=== PATIENT | male | born 1965 | race Caucasian/White ===

== ENCOUNTER 2023-08-23 12:48 | Outpatient (AMB) | payer MEDICARE, SELFPAY ==
--- NOTE | 2023-08-23 13:03 | A.SPINEOV_ITS ---
Intake Intake Visit Reasons: sacrolillitis Intake Note: Mr. Bowers is here today c/o Low back pain. Rand Tacker Required: No Assessment & Plan Assessment & Plan (1) Back pain: Code(s): M54.9 - Dorsalgia, unspecified Plan Dear Dr. Lopez Thank you for referring Mr. Bowers to our office today. He is a 58-year-old g entleman who underwent an I Fuse procedure in [address] Alarcon after series of successful SI joint injections. After he underwent the procedure, he states that after a brief recovery, he started to have a back slight of his symptoms. Specifically things started to get worse when he would be standing walking or doing any kind of physical labor. Things ultimately progressed and it sounds like he was seen at a hospital in [place] for follow-up evaluation to see if there was a problem with the surgical site. From what he tells me, it sounds like there was possibly some evidence of pseudoarthrosis but in the end the surgeon decided that he could not proceed with any intervention. Unfortunately this gentleman continues to have daily chronic pain in his back which is debilitating. It is on both sides there is SI joints and in the midline. It is worse on the right. He does occasionally get pain down his leg with the back pain seems to be the primary pain generator. He had an injection in your office last year I believe in he did get 60% relief from that and he also has been getting relief from the stabilization belt. He was sent today to see if there is any way we could consider doing surgery with the medial to lateral anterior posterior approach of the Transfasten system. PMH: He tells me he is otherwise healthy, he is currently disabled from working because of his back issues. As mentioned he had a right SI joint fusion done approximately 12 or 13 years ago. He denies any history of heart attacks, strokes, liver disorders, kidney problems, bleeding disorders, etc. Social hx: He smokes about 3/4 of a pack a day, occasionally uses marijuana, very rarely drinks. Medications: Gabapentin, ibuprofen, oxycodone and Soma Allergies: None Physical exam: Positive tenderness over the SI joints with positive compression testing eliciting pain on both sides. Gait is slightly antalgic. Imaging review: Lumbar MRI done in 2022 at [facility] showing multilevel degenerative disc disease. I did x-rays here in the office just to get a better look at the hardware in his SI joint. It looks as though the lower titanium bolt has some lucency around it. The patient tells me he does have a CT scan done at [facility] but does not have the disc with him today. I can not access this online. Impression: 58-year-old gentleman who underwent right Ifuse procedure about 10 or 12 years ago done at [facility], initially did okay, but afterwards started to continue to have progressive pain back into his SI joint. He now also has pain on the left SI joint and in his midline spine. He had a follow-up evaluation a surgeon in [place], and was told although there may be some evidence of lucency on the CT scan, there was nothing he could do because of the previous access of the joint laterally. I am interpreting this through what the patient tells me. He was being sent over today to evaluate whether or not we could use the Transfasten system which uses a medial to lateral posterior approach. I obtained basic x-rays here in the office today, it does look like there maybe a slight lucency of the lower bolt in the SI joint construct. I am going to have my office staff obtain the CT scan so we can get a little better look to see how much room we have to drill down in their in place the bone plug. Once I have the CT scan in hand I will review with Dr. Monahan and get back to the patient. Thank you for allowing us to care for your patient. The total time spent with this visit with this patient was 45 minutes reviewing history, physical exam, lumbar MRI and x-ray imaging review, and implementation of treatment plan or further diagnostic testing Min Monahan MD,PhD [facility] Orders: Orders XR pelvis min 3V Today M54.9 - Dorsalgia, unspecified XR lumbar spine 4V min Today M54.9 - Dorsalgia, unspecified Coding Level of Care Code New Pt Level 4 (77332) Diagnoses Back pain M54.9
== END 2023-08-23 14:23 | disposition home or self-care (01) ==
PROVIDERS: PCP Physician Assistant Medical; Referring Provider Physical Medicine & Rehabilitation; Visit Provider Physician Assistant
DX: M54.9 Dorsalgia, unspecified (principal)
CPT/HCPCS: 99204

== ENCOUNTER 2023-08-23 12:48 | Outpatient (REF) | payer MEDICARE, SELFPAY ==
--- NOTE | ~2023-08-23 | XR_ITS ---
EXAMINATION: XR LUMBOSACRAL SPINE WITH FLEXION AND EXTENSION VIEWS CLINICAL INFORMATION: Dorsalgia, unspecified COMPARISON: Same-day AP pelvis TECHNIQUE: AP, lateral and lateral flexion and extension views of the lumbar spine. FINDINGS: There is mild curve of the upper lumbar spine, convex left. There are 5 nonrib-bearing lumbar-type vertebral bodies. The height of vertebral bodies is well-maintained. There is mild disc space narrowing at L3-L4 and L4-L5. There is mild retrolisthesis of L2 with respect to L3, L3 respect to L4 and L5 with respect to S1. The patient demonstrates limited flexion and extension. There is no change in alignment with flexion and extension compared to the neutral view 3 metallic densities project over the right SI joint. XR/XR lumbar spine 4V min IMPRESSION: 1. Mild curve of the upper lumbar spine, convex left. 2. Multilevel degenerative disc disease. 3. Multilevel retrolisthesis unchanged with flexion and extension.
--- NOTE | ~2023-08-23 | XR_ITS ---
EXAMINATION: XR PELVIS CLINICAL INFORMATION: Dorsalgia, unspecified COMPARISON: None available. TECHNIQUE: AP view of the pelvis. FINDINGS: 3 metallic densities project over the right sacroiliac joint. No fracture. Hip joint spaces are maintained. Alignment is anatomic. The left sacroiliac joint and pubic symphysis are normal. A few small calcifications in the pelvis likely represent phleboliths. XR/XR pelvis min 3V IMPRESSION: 3 metallic densities project over the right sacroiliac joint.
== END 2023-08-23 12:49 | disposition home or self-care (01) ==
LOC: HO.HOSX 12:48
PROVIDERS: Visit Provider Physician Assistant
DX: M54.9 Dorsalgia, unspecified (principal)
CPT/HCPCS: 72110; 72190; 99202

== ENCOUNTER 2024-07-06 10:43 | Outpatient (AMB) | payer MEDICARE, SELFPAY ==
--- NOTE | 2024-07-06 11:16 | MHC.OFFVIS ---
Vital Signs 07/06/24 11:23 Height 5 ft 11 in Weight 167 lb BMI 23.3 BP 125/70 Blood Pressure Location Lt brachial Position Sitting Pulse 63 Pulse Source Pulse Oximeter Pulse Oximetry (%) 99 Oxygen Delivery Method Room Air Intake Visit Reasons: Sacroiliitis Magnetic Prospecting Supervisor Required: No Allergies No Known Allergies Allergy (Verified 07/06/24 11:17) Medication List - Last Reconciled 07/06/24 by Samantha Garcia, APPLICATION DEVELOPMENT DIRECTOR carisoprodol mg PO gabapentin mg PO omeprazole mg PO DAILY oxycodone mg PO Q4H sertraline mg PO DAILY HPI HPI Sacroiliitis: Details: History of Present Illness The patient is a 59-year-old male presenting with chronic back pain. Following an right iFuse procedure in 2010, pain initially improved but worsened with physical activity. The pain is located in the axial low back and bilaterally in the sacroiliac joints, more severely on the right, and occasionally radiates down the legs. Treatment history includes sacroiliac joint injections and current use of oxycodone and Soma. A lumbar spine MRI in 2022 showed degenerative disc and vertebral end plate modic changes. The patient's daily activities are impaired with pain peaking at 10/10. Pain Description - Onset and Timing: Chronic, worsened after iFuse procedure in 2010 - Quality and Character: Aching and stabbing sensation - Primary Location: Sacroiliac joints bilaterally - Areas of Radiation: Occasional leg pain, reaching the foot, predominantly on the right - Exacerbating Factors: Physical activity, walking, standing - Relieving Factors: Sitting, stabilization belt, oxycodone, Soma - Impact: Severe pain (10/10) impairs sleep and daily activities, except moderate sitting Physical Exam - Limited ROM. Forward flexion reproduces pain; axial rotation is also very limited Results - Tests: Lumbar spine MRI in 2022 indicating Modic 1 degenerative endplate changes are present at L3-4, and less prominently at T11-12, L2-3, L4-5, and L5-S1. Multilevel Schmorl'snodes are present. No suspicious marrow lesions are seen. Intervertebral disc spaces are diffusely desiccated, with moderate to severe loss of disc space between L1 and L5 and mild loss of disc height at L5-S1. Pain Management - Affect: Pain significantly impairs psychological well-being and sleep - Analgesia: Uses oxycodone (5x20mg daily) and Soma ([id number] daily), pain rated 10/10, goal to reduce pain levels - Adverse Effects: Loss of pain medication - Activities of Daily Living: Pain restricts daily life functions and sleeping patterns, seeks to reduce medication usage - Aberrant Drug-Related Behaviors: Reports lost pain medication Physical Exam Vital Signs: Last Vital Signs Pulse 63 07/06/24 11:23 BP 125/70 07/06/24 11:23 Pulse Ox 99 07/06/24 11:23 Oxygen Delivery Method Room Air 07/06/24 11:23 BMI result Body Mass Index 23.3 Assessment & Plan Assessment & Plan (1) Vertebrogenic low back pain: Code(s): M54.51 - Vertebrogenic low back pain Category: Medical (2) S/P fusion of sacroiliac joint: Comment: right Code(s): Z98.1 - Arthrodesis status Category: Medical (3) Sacroiliac joint dysfunction of both sides: Code(s): M53.3 - Sacrococcygeal disorders, not elsewhere classified Category: Medical Plan Plan - Discussed BVN ablation for vertebrogenic LBP that has not responded to SIJ fusion, SIJ injections, opioid medications and bracing. Significantly affecting ADLs and QoL. Will target L3, L4, L5 and S1 levels. Patient was informed and verbally consented to the use of an ambient scribe for clinic note documentation during this visit. Discussion Notes I discussed with the patient the possibility of vertebrogenic pain contributing to his chronic back pain. The initial plan includes intracept procedure on the lumbar area, which may decrease pain levels significantly. It is anticipated that sacroiliitis pain may need separate management following the initial intervention. I explained the procedure's details using educational materials, and the expected outcome of reducing pain levels, and proposed to monitor the response before proceeding with additional sacroiliac joint treatments. We discussed that the intracept procedure will last approximately four hours, with the patient likely to be discharged post-procedure. I provided materials for further study of the procedure and agreed on follow-up dependent upon the outcome of initial intervention. Patient Instructions - Use pain management resources provided - Prepare for intervention targeting lower back - Arrange transportation for the procedure; hospital stay expected to be around four hours - Watch procedure video material provided - Follow up with respective medical team post-procedure for evaluation - Report sudden changes in symptoms or conditions prior to mediation plan completion Coding Level of Care Code New Pt Level 4 (44303) Diagnoses Vertebrogenic low back pain M54.51 S/P fusion of sacroiliac joint Z98.1 Sacroiliac joint dysfunction of both sides M53.3
[2024-07-06 11:23] VITALS: BP 125/70; PULSE 63; O2SAT 99; BMI 23.3
== END 2024-07-06 12:05 | disposition home or self-care (01) ==
PROVIDERS: PCP Physician Assistant Medical; Referring Provider Physical Medicine & Rehabilitation; Visit Provider Internal Medicine
DX: M54.51 Vertebrogenic low back pain (principal); Z98.1 Arthrodesis status; M53.3 Sacrococcygeal disorders, not elsewhere classified
CPT/HCPCS: 99204

== ENCOUNTER → 2024-07-06 10:43 | Outpatient (BNVA) | payer OTHER, SELFPAY | PROVIDERS: PCP Physician Assistant Medical; Referring Provider Physical Medicine & Rehabilitation; Visit Provider Internal Medicine | DX: M53.3 Sacrococcygeal disorders, not elsewhere classified (principal); M54.51 Vertebrogenic low back pain; Z79.891 Long term (current) use of opiate analgesic; Z98.1 Arthrodesis status | CPT/HCPCS: 99202 ==

== ENCOUNTER 2024-09-16 11:08 | Day surgery (SDC) | payer OTHER, SELFPAY ==
[2024-09-14 16:08] VITALS: BMI 23.3
[2024-09-16] VITALS (13 sets, daily range): BP systolic 106–161; BP diastolic 66–91; PULSE 52–68; RESP 16–20; TEMP 36.1–36.7; O2SAT 96–100; BMI 23.4
--- NOTE | ~2024-09-16 | FL_ITS ---
EXAMINATION: FL GUIDANCE ONLY HISTORY: intracept COMPARISON: Correlation is made with plain films of the lumbar spine dated 08/23/2023. TECHNIQUE: Fluoroscopy time: 2 minutes, 22 seconds. Cumulative Dose: 80.25 mGy. DAP: 0.139 mGym2 Images: 11. FINDINGS: Images demonstrate probes within the L3, L4, L5, and S1 vertebral bodies. FL/FL guidance in OR IMPRESSION: Fluoroscopy during procedure. Please see procedure report for additional information. Electronically signed by: Curtis Tran MD 09/17/2024 07:19 AM EDT
[2024-09-16 13:27] LABS: MRSA Nasal PCR NEGATIVE (Negative); SA Nasal PCR POSITIVE (Negative)
--- NOTE | 2024-09-16 13:37 | HO.ANESPROP2 ---
[facility] Active Problems Active Problems: All Active Problems Sacroiliac joint dysfunction of both sides (Acute) S/P fusion of sacroiliac joint (Acute) Vertebrogenic low back pain (Acute) Back pain (Acute) Past Medical History Functional capacity: independent ambulation Family History Family history of problems with anesthesia: No Surgical History History of Problems with Anesthesia: No Social History Social History Patient Tobacco Use Status: Current everyday Tobacco user Tobacco use type: Cigarette Cigarettes Per Day: 15 Use of substances other than those prescribed or required for medical reasons: Yes Substance Use Type Other:: CBD gummies occasionally, last used 09/15/24 Advance Directives: No Advance Directives Information Provided: Yes Meds Allergies Allergy/AdvReac Type Severity Reaction Status Date / Time No Known Allergies Allergy Verified 09/16/24 12:08 Home Medications ?Medication ?Instructions ?Recorded ?Confirmed ?Last Taken ?Type carisoprodol 350 mg tablet 350 mg PO QID 07/06/24 09/16/24 Unknown History gabapentin 300 mg capsule 1,500 mg PO BEDTIME 07/06/24 09/16/24 Unknown History omeprazole 40 mg capsule,delayed 40 mg PO DAILY 07/06/24 09/16/24 Unknown History release oxycodone 20 mg tablet 20 mg PO Q3H 07/06/24 09/16/24 09/16/24 11:55 History sertraline 50 mg tablet 50 mg PO DAILY 07/06/24 09/16/24 Unknown History Exam Height,Weight and Vital Signs: Height 5 ft 11 in Weight 76 kg Last Vital Signs Temp 98.1 F 09/16/24 12:12 Pulse 52 09/16/24 12:12 Resp 16 09/16/24 12:12 BP 106/66 09/16/24 12:12 Pulse Ox 96 09/16/24 12:12 O2 Del Method Room Air 09/16/24 12:12 Pertinent Lab Results Pertinent Lab Results: Laboratory Tests 09/16/24 12:05 Nasal Screen MRSA (PCR) NEGATIVE Nasal S. aureus Screen POSITIVE A Nasal MRSA/S.aureus Interp SEE NOTE Airway Mallampati Class: II TM Dist: >3cm Neck ROM: Full Heart: RRR Lungs: CTA Assessment and Plan Assessment Anesthesia Assessment: Anesthesia Plan Discussed, Smoking Cess. Discussed and Chart Reviewed Final Anesthetic Review Family History of Problems with Anesthesia: No History of Problems with Anesthesia: No NPO: Yes ASA Class: III Final Preanesthetic Review: Meds/Allgs Chart Reviewed, Consent Obtained/Reviewed and Anes Risks/Benef Reviewed Patient Risk: Intermediate Procedure Risk: Intermediate Anesthetic Plan Anesthetic Plan: GA Disposition: Standard PACU
--- NOTE | 2024-09-16 14:10 | MHC.SHP ---
Pre-Procedural Eval Section A - 24 Hr Update-Section A only Date of Service: 09/16/24 The patient is an INPATIENT: No Changes since office visit: Yes Patient answered all questions The patient has been examined within 24 hours of the surgical procedure. The History & Physical has been completed within 30 days and I have reviewed it.: No Section B - Complete if H&P > 30 days Chief Complaint: Vertebrogenic low back pain Relevant Family History (Specify if Yes): No Relevant Social History: None Present Medications: see Short Stay Collaborative assessment Medical History: No relevant PMH History of Previous Operations: No relevant previous surgery Allergies: Allergies Allergy/AdvReac Type Severity Reaction Status Date / Time No Known Allergies Allergy Verified 09/16/24 12:08 Review of Systems Sugical H&P ROS: Negative: Constitution, Cardiovascular and Respiratory Exam Surgical H&P Exam: Normal: HEENT, Normal: Heart and Normal: Lungs Plan Diagnosis/Plan: Unchanged I have reviewed the history and physical and performed a pertinent physical examination on my patient. No changes have occurred unless specified. Time Spent With Patient Time: Total time managing care of this patient today ____ minutes.
--- NOTE | 2024-09-16 16:53 | PM.OP ---
Brief Operative Note Date of Service: 09/16/24 Pre-op diagnosis: Vertebrogenic low back pain Post-op diagnosis: same Procedure: L3, L4, L5, S1 Basivertebral nerve ablation (Intracept) procedure Implants: None Surgeon: Archie Castillo MD Anesthesia: GETA Was an Polysomnographic Technologist used for this Procedure?: No Estimated blood loss (mL): 40 Pathology: none sent Condition: stable Disposition: PACU
--- NOTE | 2024-09-16 16:55 | P.OP_ITS ---
Operative Note Operative Note Date of Service: 09/16/24 Narrative: Preoperative diagnosis: Vertebrogenic low back pain Postoperative diagnosis: Same Procedure: Basivertebral nerve (BVN) ablation ? Intracept Procedure L3, L4, L5, S1 Procedure Time Out: Patient ID confirmed, correct procedure to be performed, correct site and/or side for procedure as per marked location and correct medication(s), including antibiotic to be used for the procedure. Description of Procedure: After receiving anesthesia in the supine position, the patient was placed prone on the operating room table and all pressure points w ere appropriately padded. The back was sterilely prepped and draped. The C-arm was sterilely draped and moved into position to visualize the S1 vertebral body in the AP and lateral plane. The C-arm was rotated to a Lemus view to square off the superior endplate at S1. The C-arm was then rotated to the right approximately 15-20 degrees for an approach to the right S1 pedicle. The skin entry point was identified and infiltrated with 1% lidocaine using a 25-gauge 1- 1/2 inch needle. A 22-gauge 5-inch spinal needle was used to anesthetize the track to the pedicle and periosteum and confirm the introducer cannula trajectory. A skin incision was made with 15 scalpel blade. The introducer cannula with bevel tip was then introduced through the skin, subcutaneous tissue and paraspinal muscle until bony contact was made. The position was checked in the AP and lateral plane. Using a mallet, the trocar was then advanced thru the pedicle to the posterior aspect of the vertebral body using a combination of AP and lateral views to ensure appropriate traversing of the pedicle and no breaching of the pedicle medially. Once the trocar was in the posterior aspect of the S1 vertebral body, the trocar was removed from the cannula and the curved cannula assembly with the nitinol J-stylet was inserted. The spin wheel was rotated counterclockwise permitting excursion of the J-stylet. The curved can nula assembly was then advanced using a mallet in 1-2 mm increments. The J- stylet was observed to traverse the vertebral body in the AP and lateral views. The J-stylet was removed and replaced with the straight stylet to reach the BVN target. Target was reached when the tip of the stylet was 50% anterior of the posterior wall of the S1 in the lateral view (midway between the superior and inferior endplates) and it crossed the midline of the S1 spinous process in the AP view. The stylet was then removed. The bipolar radiofrequency (RF) probe was connected to the generator and then inserted into the introducer cannula in its ablation position. The spin wheel was rotated clockwise to retract the PEEK sleeve to expose the proximal electrode on the radiofrequency probe. The BVN was then ablated using [employer]?s targeted RFG algorithm. While the ablation was occurring at S1, the C-arm was moved to visualize the target at the superolateral aspect of the L5 vertebral body. The C-arm was rota bernadine to square off the superior endplate at L5 and rotated left to obtain an oblique view. The superolateral left L5 pedicle was identified for access. The same process was utilized to place the tip of the cannular 50% anterior of the posterior wall of the L5 in the lateral view (midway between the superior and inferior endplates) and it crossed the midline of the L5 spinous process in the AP view. The stylet was then removed. The bipolar radiofrequency (RF) probe was removed from the previous vertebral body, the tip cleaned and was inserted into the introducer cannula in its ablation position. The spin wheel was rotated clockwise to retract the PEEK sleeve to expose the proximal electrode on the radiofrequency probe. The BVN was then ablated using [employer]?s targeted RFG algorithm. While the ablation was occurring at L5, the C-arm was moved to visualize the target at the superolateral aspect of the L4 vertebral body using the approach similar to the L5 vertebral body. The C-arm was rotated to square off the superior endplate at L4 and rotated approximately to the right to obtain an oblique view. The superolateral right L4 pedicle was identified, and the skin entry point identified. Same steps were followed as for L5. Target was reached when the tip of the stylet was 50% anterior of the posterior wall of the L4 in the lateral view (midway between the superior and inferior endplates) and it crossed the midline of the L4 spinous process in the AP view. The stylet was then removed. The bipolar radiofrequency (RF) probe was removed from the previous vertebral body, the tip cleaned and was inserted into the introducer cannula in its ablation position. The spin wheel was rotated clockwise to retract the PEEK sleeve to expose the proximal electrode on the radiofrequency probe. The BVN was then ablated using [employer]?s targeted RFG algorithm. While the ablation was occurring at L4, the C-arm was moved to visualize the target at the superolateral aspect of the L3 vertebral body. The C-arm was rotated to square off the superior endplate at L3 and rotated left to obtain an oblique view. The superolateral left L3 pedicle was identified for access. The same process was utilized to place the tip of the cannular 50% anterior of the posterior wall of the L3 in the lateral view (midway between the superior and inferior endplates) and it crossed the midline of the L5 spinous process in the AP view. The stylet was then removed. The bipolar radiofrequency (RF) probe was removed from the previous vertebral body, the tip cleaned and was inserted into the introducer cannula in its ablation position. The spin wheel was rotated clockwise to retract the PEEK sleeve to expose the proximal electrode on the radiofrequency probe. The BVN was then ablated using [employer]?s targeted RFG algorithm. With all ablations completed, the instruments were removed from the vertebral bodies. The surgical wounds were closed with 2-0 silk sutures and a sterile dressing was applied. The patient was returned to the supine position and the anesthesia reversed. The patient tolerated the procedure well and was brought to the recovery room. The patient was provided post-op and follow up instructions. Complications: None Estimate Blood Loss: 40 mL
[2024-09-16] MEDS: Ketorolac Tromethamine 30 MG/ML VIAL IVPUSH (16:56)
[2024-09-16] MEDS: fentaNYL citrate/PF 100 MCG/2 ML VIAL 50 MCG IVPUSH ×3 (16:57→17:15)
[2024-09-16] MEDS: oxyCODONE HCl Immed Release 5 MG TABLET PO (17:28)
== END 2024-09-16 17:43 | disposition home or self-care (01) ==
PROVIDERS: Registered Nurse Emergency; Visit Provider Internal Medicine
PROC: (CPT 64628; principal; 2024-09-16 13:20)
DX: M54.51 Vertebrogenic low back pain (principal); G89.29 Other chronic pain; M46.1 Sacroiliitis, not elsewhere classified; M53.3 Sacrococcygeal disorders, not elsewhere classified; Z98.1 Arthrodesis status; Z79.891 Long term (current) use of opiate analgesic; Z79.899 Other long term (current) drug therapy; F17.210 Nicotine dependence, cigarettes, uncomplicated
CPT/HCPCS: 64628; 64629 ×2; 87640; 87641; C1889; J0690; J1100; J1171; J1596; J1885; J2003; J2250; J2405; J2704; J2795; J3010

== ENCOUNTER → 2024-09-16 11:08 | Outpatient (BNV) | payer OTHER, SELFPAY | PROVIDERS: Visit Provider Internal Medicine | DX: M54.51 Vertebrogenic low back pain (principal) | CPT/HCPCS: 64628; 64629 ==

== ENCOUNTER 2024-09-25 10:47 | Outpatient (AMB) | payer OTHER, SELFPAY ==
--- NOTE | 2024-09-25 10:50 | A.OFFVIS_ITS ---
Vital Signs 09/25/24 10:51 Height 5 ft 10 in Weight 165 lb BMI 23.7 BP 128/73 Blood Pressure Location Lt brachial Position Sitting Pulse 62 Pulse Source Pulse Oximeter Pulse Oximetry (%) 97 Oxygen Delivery Method Room Air Intake Visit Reasons: S/p L3, L4, L5 and S1 BVN 09/16/24 Track Superintendent Required: No Allergies No Known Allergies Allergy (Verified 09/25/24 10:54) Medication List - Last Reconciled 09/25/24 by Samantha Garcia, COMPENSATION SPECIALIST carisoprodol 350 mg PO QID gabapentin 1,500 mg PO BEDTIME omeprazole 40 mg PO DAILY oxycodone 20 mg PO Q3H sertraline 50 mg PO DAILY HPI HPI S/p L3, L4, L5 and S1 BVN 09/16/24: Details: History of Present Illness The patient is a 59-year-old male presenting for a follow-up visit focusing on his pain management post-basivertebral nerve ablation procedure. Central back pain appears controlled. The SIJ pain continues unabated. His pain history is significant for chronic sacroiliac joint pain, exceeding a decade, and exacerbated by particular activities such as standing or walking on concrete surfaces. He has undergone previous right sacroiliac joint fusion, which did not yield the desired relief. Recently, the patient engaged in activities that increased his pain temporarily, and he reports anticipatory relief following his recent procedure. The persistent pain, described as burning and existing on both sides but primarily the right, is interfering with his usual daily activities. There has been previous discussion of surgical interventions, including the placement of new rods, but the patient's preference is towards less invasive solutions potentially offered by a peripheral nerve stimulator. Pain Description - Onset: Persistent for approximately 10 years - Quality: Chronic, burning sensation - Location: Right sacroiliac joint, occasionally affects the left side - Impact: Significant interference with standing, walking, and daily activities - Aggravating Factors: Standing or walking on concrete surfaces - Relieving Factors: Walking on softer surfaces like grass or wood Physical Exam - Musculoskeletal- Right sacroiliac joint noted to be sore upon palpation - No tenderness overlying incision sites Pain Management - Affect: Reports significant impact on quality of life and psychological wellbeing due to persistent, severe pain - Analgesia: Currently taking opioid medication with plans to reduce, desires alternative management options - Adverse Effects: None reported, but expressed desire to reduce opioid dependence - Activities of Daily Living: Pain restricts activity levels, prohibiting extended standing/walking - Aberrant Drug Related Behaviors: None reported, compliance with current medication regimen [facility] Social History Comment: medicated; tolerable at discharge Patient Tobacco Use Status: Current everyday Tobacco user Tobacco use type: Cigarette Cigarettes Per Day: 15 Physical Exam Vital Signs: Last Vital Signs Pulse 62 09/25/24 10:51 BP 128/73 09/25/24 10:51 Pulse Ox 97 09/25/24 10:51 Oxygen Delivery Method Room Air 09/25/24 10:51 BMI result Body Mass Index 23.7 Assessment & Plan Assessment & Plan (1) Sacroiliac joint dysfunction of both sides: Code(s): M53.3 - Sacrococcygeal disorders, not elsewhere classified Category: Medical (2) Vertebrogenic low back pain: Code(s): M54.51 - Vertebrogenic low back pain Category: Medical (3) Cluneal neuropathy: Code(s): G58.8 - Other specified mononeuropathies Category: Medical Plan Plan - Pursue peripheral nerve stimulator trial for 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 Patient was informed and verbally consented to the use of an ambient scribe for clinic note documentation during this visit. Discussion Notes During this visit, I discussed with the patient the chronic pain related to his failed sacroiliac joint fusion and the possible intervention of a peripheral nerve stimulator to manage this pain. I detailed the procedural aspects of the stimulator, which involves a trial to assess efficacy before permanent implantation. I explained the need for psychology clearance as part of the clearance requirement. Information on benefits, including decreased reliance on pain medications, was provided. We also addressed medication management, with a temporary prescription issued to bridge the gap until the next refill, and ensured that the prescription is coordinated with the correct pharmacy. Patient Instructions - Prepare for the upcoming psychology evaluation as part of the peripheral nerve stimulator process. - Continue current medications as prescribed until the refill date. - Monitor pain levels and report any changes during follow-up visits. - Avoid activities known to exacerbate pain, and explore moderate movement where comfortable. - Follow-up with pharmacy details to ensure medication receipt. Medications: New oxycodone 20 mg PO Q3H 20 tabs 0RF Coding Level of Care Code Est Pt Level 4 (48035) Diagnoses Sacroiliac joint dysfunction of both sides M53.3 Vertebrogenic low back pain M54.51 Cluneal neuropathy G58.8
[2024-09-25 10:51] VITALS: BP 128/73; PULSE 62; O2SAT 97; BMI 23.7
== END 2024-09-25 11:38 | disposition home or self-care (01) ==
PROVIDERS: Visit Provider Internal Medicine
DX: M53.3 Sacrococcygeal disorders, not elsewhere classified (principal); M54.51 Vertebrogenic low back pain; G58.8 Other specified mononeuropathies
CPT/HCPCS: 99024

== ENCOUNTER → 2024-09-25 10:47 | Outpatient (BNVA) | payer OTHER, SELFPAY | PROVIDERS: Visit Provider Internal Medicine | DX: M53.3 Sacrococcygeal disorders, not elsewhere classified (principal); M54.51 Vertebrogenic low back pain; G58.8 Other specified mononeuropathies | CPT/HCPCS: 99212 ==